=== PATIENT | male | born 1955 | race Caucasian/White ===

== ENCOUNTER 2017-01-09 13:42 | Outpatient (CLI) | payer OTHER ==
--- NOTE | 2017-01-09 16:26 | Diagnostic Imaging Report ---
Indication: Back pain. History of multiple sclerosis. Technique: MRI examination of the thoracic spine was performed in a 1.5 Vilma magnet. Sequences obtained include sagittal and axial T1 and T2 fast spin echo, and sagittal STIR. No IV gadolinium was given Comparison: none Findings: The patient is contracted and mastoid show imaging is somewhat limited. There is a convexity of the thoracic spine toward the left. The spinal cord appears homogeneous. There is no evidence of any focal lesions within the spinal cord. There is no spinal stenosis or neural impingement identified desiccation and narrowing of multiple intervertebral discs are noted with accompanying endplate spurs at multiple locations. No abnormal fluid collections identified. No soft tissue mass identified. Bone marrow signal is within normal limits. Impression: Unremarkable appearance of the thoracic portion of the spinal cord. Spondylosis as described above
== END 2017-01-09 15:42 | disposition home or self-care (01) ==
LOC: MRI 13:42
DX: G35 Multiple sclerosis (principal); M47.894 Other spondylosis, thoracic region
CPT/HCPCS: 72146